=== PATIENT | female | born 1995 | race Caucasian/White ===

== ENCOUNTER 2020-04-06 11:43 | Emergency (ER) | payer SELFPAY ==
[~2020-04-06] VITALS: Ht 163.8 cm; Wt 122.0 kg
[2020-04-06 11:46] VITALS: BP 132/94
--- NOTE | 2020-04-06 11:51 | NUR ---
amb to bed 09
--- NOTE | 2020-04-06 12:12 | NUR ---
C/O INCREASING SOB X2 WEEKS. PT STATES SHE HAS A HX OF ASTHMA SINCE CHILDHOOD. PT REPORTS RUNNING OUT OF ALBUTEROL X6 MO AGO, BUT NOT SEEING A DR. BECAUSE SHE HAS NOT NEEDED IT. PT DENIES N/V/D, FEVER, CHEST PAIN. O2 SAT RA 99%. HR EVEN AND REGULAR. LUNG SOUNDS CAEBL, EQUAL CHEST RISE/FALL. PT PLACED ON BEDSIDE PULSE OX MONITOR. BED IN LOW POSITION, SIDE RAIL UP X1.
[2020-04-06] MEDS ORDERED: ALBUTEROL SULFATE/IPRATROPIU 3 ML SOL IH ONE (13:10)
--- NOTE | 2020-04-06 13:25 | NUR ---
RT at bedside for breathing treatment.
[2020-04-06 13:46] VITALS: BP 132/90
--- NOTE | 2020-04-06 13:46 | NUR ---
Patient discharged with v/s stable. Written and verbal after care instructions given and explained. Patient alert, oriented and verbalized understanding of instructions. Ambulatory with steady gait. All questions addressed prior to discharge. ID band removed. Patient advised to follow up with PMD. Rx of Ventolin HFA 90 mcg/actuation given. Patient educated on indication of medication including possible reaction and side effects. Opportunity to ask questions provided and answered.
== END 2020-04-06 13:46 | disposition home or self-care (01) ==
LOC: MED 11:43
DX: J45.901 Unspecified asthma with (acute) exacerbation (principal)
CPT/HCPCS: 94640; 99283; 99285